=== PATIENT | female | born 1970 | race Caucasian/White ===

== ENCOUNTER 2024-09-09 16:29 | Emergency (ER) | payer BC | END 2024-09-09 17:55 | disposition home or self-care (01) | LOC: MW.ED 16:29 | DX: Z76.0 Encounter for issue of repeat prescription (principal); Z79.899 Other long term (current) drug therapy; Z75.8 Other problems related to medical facilities and other health care; Z91.048 Other nonmedicinal substance allergy status; Z88.8 Allergy status to other drugs, medicaments and biological substances | CPT/HCPCS: 99281; 99283 ==